=== PATIENT | female | born 1980 | race Two or more races ===

== ENCOUNTER 2023-02-03 23:52 | Emergency (ER) | payer SELFPAY ==
[~2023-02-03] VITALS: Ht 149.9 cm; Wt 149.0 kg
[2023-02-04 02:13] LABS: Basophils # (auto) 0 10 ^3/uL (0-0.2); Basophils % (auto) 0.2 % (0.0-2.0); Eosinophils # (auto) 0.1 10 ^3/uL (0-0.8); Hematocrit 44.9 % (36.0-46.0); Hemoglobin 15.1 g/dL (12.2-16.2); Lymphocytes # (auto) 4.2 10 ^3/uL (0.4-5.4); Lymphocytes % (auto) 31.7 % (10.0-50.0); Mean Corpuscular Hemoglobin 28.9 pg (28.0-32.0); Mean Corpuscular Hgb Conc. 33.6 g/dL (32.0-36.0); Monocytes # (auto) 0.6 10 ^3/uL (0-1.3); Monocytes % (auto) 4.8 % (0.0-12.0); Neutrophils # (auto) 8.3 10 ^3/uL (1.6-8.6); Neutrophils % (auto) 62.3 % (37.0-80.0); Nucleated Red Blood Cells % 0.1 %; Red Blood Cells 5.22 10^6/uL (4.0-5.20); Red Cell Distribution Width 14.1 % (11.8-14.3); White Blood Cell 13.4 10^3/uL (4.4-10.8)
[2023-02-04 02:16] LABS: Urine Bacteria NONE SEEN /hpf (None Seen); Urine Blood Negative /uL (Negative); Urine Clarity Clear (Clear); Urine Color Colorless (Yellow); Urine Protein, UAD Negative (Negative); Urine Specific Gravity 1.014 (1.001-1.035); Urine Urobilinogen Normal (Negative); Urine WBC <1 /hpf (0 - 5)
[2023-02-04 02:20] LABS: INR 0.95 (0.9-1.15); Partial Thromboplastin Time 30.5 SEC (24.5-34.5)
[2023-02-04 02:36] LABS: Alanine Aminotransferase 24 U/L (7-40); Albumin 4.7 g/dL (3.2-4.8); Alkaline Phosphatase 101 U/L (46-116); Anion Gap 6 (5-15); Aspartate Aminotransferase 16 U/L (13-40); BUN/Creatinine Ratio 13.6 (10.0-20.0); Bilirubin, Total 0.4 mg/dL (0.2-1.0); Blood Urea Nitrogen 9 mg/dL (9-23); Calcium 9.1 mg/dL (8.7-10.4); Carbon Dioxide 26 mmol/L (20-30); Chloride 104 mmol/L (98-107); Glucose 115 mg/dL (74-106); Potassium 3.7 mmol/L (3.5-5.1); Sodium 136 mmol/L (136-145); Total Protein 7.6 g/dL (5.7-8.2)
[2023-02-04 09:30] VITALS: PULSE 72; RESP 16; O2SAT 98
[2023-02-04 09:32] VITALS: BP 131/67; PULSE 76; RESP 20; TEMP 98; O2SAT 98
== END 2023-02-04 09:44 | disposition home or self-care (01) ==
LOC: ER 23:52
DX: F43.29 Adjustment disorder with other symptoms (principal); R10.2 Pelvic and perineal pain; R00.2 Palpitations; Z86.2 Personal history of diseases of the blood and blood-forming organs and certain disorders involving the immune mechanism
CPT/HCPCS: 36415; 71045; 80053; 81001; 83880; 84484; 84702; 85025; 85610; 85730; 93005

== ENCOUNTER 2023-08-30 06:38 | Inpatient (IN) | payer OTHER, SELFPAY ==
[~2023-08-30] VITALS: Ht 167.6 cm; Wt 70.4 kg
[2023-08-30 07:30] LABS: Basophils # (auto) 0 10 ^3/uL (0-0.2); Basophils % (auto) 0.3 % (0.0-2.0); Eosinophils # (auto) 0.2 10 ^3/uL (0-0.8); Eosinophils % (auto) 1.7 % (0.0-7.0); Hemoglobin 14.2 g/dL (12.2-16.2); Lymphocytes # (auto) 4.2 10 ^3/uL (0.4-5.4); Lymphocytes % (auto) 38.7 % (10.0-50.0); Mean Corpuscular Hemoglobin 28.9 pg (28.0-32.0); Mean Corpuscular Hgb Conc. 33.8 g/dL (32.0-36.0); Mean Corpuscular Volume 85.6 fL (80.0-100.0); Monocytes # (auto) 0.6 10 ^3/uL (0-1.3); Monocytes % (auto) 5.1 % (0.0-12.0); Neutrophils # (auto) 5.9 10 ^3/uL (1.6-8.6); Neutrophils % (auto) 54.2 % (37.0-80.0); Nucleated Red Blood Cells % 0.1 %; Red Blood Cells 4.91 10^6/uL (4.0-5.20); Red Cell Distribution Width 14.5 % (11.8-14.3); White Blood Cell 10.9 10^3/uL (4.4-10.8)
[2023-08-30 07:39] LABS: Chloride 104 mmol/L (98-107); Potassium 3.5 mmol/L (3.5-5.1); Sodium 137 mmol/L (136-145)
[2023-08-30 07:40] LABS: Anion Gap 11 (5-15); Carbon Dioxide 22 mmol/L (20-30)
[2023-08-30 07:41] LABS: Calcium 9.1 mg/dL (8.5-10.1)
[2023-08-30 07:46] LABS: BUN/Creatinine Ratio 17.6 (10.0-20.0); Blood Urea Nitrogen 12 mg/dL (9-23); Glucose 102 mg/dL (74-106)
[2023-08-30 09:28] VITALS: PULSE 67; RESP 16; O2SAT 97
[2023-08-30 09:53] LABS: Urine Bacteria FEW /hpf (None Seen); Urine Blood 2+ /uL (Negative); Urine Clarity Clear (Clear); Urine Color Yellow (Yellow); Urine Mucus FEW (None Seen); Urine Protein, UAD TRACE (Negative); Urine Specific Gravity 1.029 (1.001-1.035); Urine Urobilinogen Normal (Negative); Urine WBC 2 /hpf (0 - 5)
[2023-08-30] MEDS: SODIUM CHLORIDE 0.9% 1,000 ML IV SCH ×2 (15:25→23:30)
[2023-08-30 17:54] VITALS: BP 140/80; PULSE 72; RESP 17; TEMP 98; O2SAT 96
[2023-08-30 20:00] VITALS: PULSE 77; RESP 16; O2SAT 95
[2023-08-30 21:00] VITALS: BP 120/45; PULSE 75; RESP 19; TEMP 98.2; O2SAT 97
[2023-08-30] MEDS ORDERED: LORazepam 2MG/ML-1ML VIAL IV PRN (22:15)
[2023-08-31] VITALS (8 sets, daily range): BP systolic 115–134; BP diastolic 64–75; PULSE 64–82; RESP 17–18; TEMP 97.8–98.3; O2SAT 96–100
[2023-08-31 05:49] LABS: Basophils # (auto) 0 10 ^3/uL (0-0.2); Basophils % (auto) 0.4 % (0.0-2.0); Eosinophils # (auto) 0.2 10 ^3/uL (0-0.8); Eosinophils % (auto) 1.5 % (0.0-7.0); Hematocrit 38.7 % (36.0-46.0); Hemoglobin 13.1 g/dL (12.2-16.2); Lymphocytes # (auto) 3.2 10 ^3/uL (0.4-5.4); Lymphocytes % (auto) 31.7 % (10.0-50.0); Mean Corpuscular Hemoglobin 29.1 pg (28.0-32.0); Mean Corpuscular Hgb Conc. 33.9 g/dL (32.0-36.0); Monocytes # (auto) 0.6 10 ^3/uL (0-1.3); Monocytes % (auto) 5.9 % (0.0-12.0); Neutrophils # (auto) 6.1 10 ^3/uL (1.6-8.6); Neutrophils % (auto) 60.5 % (37.0-80.0); Nucleated Red Blood Cells % 0.1 %; Red Blood Cells 4.51 10^6/uL (4.0-5.20); Red Cell Distribution Width 14.6 % (11.8-14.3); White Blood Cell 10.1 10^3/uL (4.4-10.8)
[2023-08-31 06:06] LABS: Alanine Aminotransferase 20 U/L (7-40); Albumin 3.8 g/dL (3.2-4.8); Alkaline Phosphatase 96 U/L (46-116); Anion Gap 7 (5-15); Aspartate Aminotransferase 11 U/L (13-40); BUN/Creatinine Ratio 13.1 (10.0-20.0); Bilirubin, Total 0.6 mg/dL (0.2-1.0); Blood Urea Nitrogen 8 mg/dL (9-23); Calcium 8.6 mg/dL (8.5-10.1); Carbon Dioxide 23 mmol/L (20-30); Chloride 108 mmol/L (98-107); Glucose 98 mg/dL (74-106); Potassium 3.7 mmol/L (3.5-5.1); Sodium 138 mmol/L (136-145); Total Protein 6.2 g/dL (5.7-8.2)
[2023-08-31] MEDS: IOHEXOL 350 MG/ML 100ML IJ ONE (07:40)
[2023-08-31] MEDS: ATORVASTATIN 20 MG TAB PO SCH (21:19)
[2023-09-01 01:00] VITALS: BP 128/86; PULSE 65; RESP 18; TEMP 97.6; O2SAT 97
[2023-09-01] MEDS: ACETAMINOPHEN 325 MG TAB PO PRN (01:12)
[2023-09-01 05:00] VITALS: BP 117/61; PULSE 64; RESP 18; TEMP 98.1; O2SAT 96
[2023-09-01 07:27] LABS: Cholesterol 250 mg/dL (< 200)
[2023-09-01 07:28] LABS: LDL Cholesterol 198 mg/dL (< 100)
[2023-09-01 07:29] LABS: Triglycerides 171 mg/dL (< 150)
[2023-09-01 07:30] LABS: HDL Cholesterol 46 mg/dL (40-59)
[2023-09-01 09:00] VITALS: BP 110/65; PULSE 64; RESP 20; TEMP 98.2; O2SAT 98
[2023-09-01] MEDS ORDERED: ATOR20TA50 PO (11:24)
[2023-09-01 13:30] VITALS: BP 130/75; PULSE 63; RESP 20; TEMP 98.4; O2SAT 100
[2023-09-01 17:25] VITALS: BP 108/52; PULSE 67; RESP 20; TEMP 98.3; O2SAT 94
== END 2023-09-01 18:38 | disposition home or self-care (01) | DRG 149 ==
LOC: EDUNIT# 06:38 → EDBD 06:38 → ER 06:43 → TELE 14:44 → TELE-CENTR 17:34 → CENTRAL 08-31 17:47
PROVIDERS: ADMIT Internal Medicine Geriatric Medicine; ATTEND Emergency Medicine
DX: H81.10 Benign paroxysmal vertigo, unspecified ear (principal); F41.9 Anxiety disorder, unspecified; F32.A Depression, unspecified; F43.81 Prolonged grief disorder; E78.5 Hyperlipidemia, unspecified; Z83.3 Family history of diabetes mellitus
CPT/HCPCS: 36415; 70450; 70498; 70551; 80048; 80053; 80061; 81001; 82306; 83036; 84439; 84443; 85025; 93005; 93886; G0378